=== PATIENT | male | born 1990 | race Caucasian/White ===

== ENCOUNTER → 2018-04-23 | Outpatient (CLI) | payer BC ==
--- NOTE | 2018-04-23 07:53 | US ---
EXAMINATION TYPE: US liver DATE OF EXAM: 04/23/2018 COMPARISON: NONE CLINICAL HISTORY: B18.2 Chronic viral Hep C. no symptoms, about to start treatment EXAM MEASUREMENTS: Liver Length: 17.8 cm Gallbladder Wall: 0.3 cm CBD: 0.6 cm Right Kidney: 11.9 x 5.2 x 5.9 cm overlying bowel gas limits exam Pancreas: limited views with no obvious abnormality Liver: wnl Gallbladder: wnl Evidence for sonographic Schulz's sign: no CBD: wnl Right Kidney: wnl IMPRESSION: No sonographic sequela of hepatocellular disease. Unremarkable hepatic ultrasound.
== END | disposition home or self-care (01) ==
LOC: RADUSWWP 07:00
DX: B18.2 Chronic viral hepatitis C (principal)
CPT/HCPCS: 76705

== ENCOUNTER → 2018-05-12 | Outpatient (CLI) | payer BC ==
[2018-05-12 18:04] LABS: Basophils % (A) 0 %; Eosinophils # (A) 0.1 k/uL (0-0.7); Eosinophils % (A) 2 %; HCT 48.8 % (39.0-53.0); HGB 15.6 gm/dL (13.0-17.5); Lymphocytes # (A) 2.2 k/uL (1.0-4.8); Lymphocytes % (A) 29 %; MCH 30.2 pg (25.0-35.0); MCHC 31.9 g/dL (31.0-37.0); MCV 94.5 fL (80.0-100.0); Mean Platelet Volume 7.1; Monocytes # (A) 0.5 k/uL (0-1.0); Monocytes % (A) 6 %; Neutrophils # (A) 4.6 k/uL (1.3-7.7); Neutrophils % (A) 61 %; Platelet Count 212 k/uL (150-450); RBC 5.17 m/uL (4.30-5.90); RDW 12.4 % (11.5-15.5); WBC 7.5 k/uL (3.8-10.6)
[2018-05-13 03:54] LABS: Albumin 4.6 g/dL (3.80-4.90); Bilirubin, Conjugated 0.2 mg/dL (0.20-0.40); Bilirubin,Unconjugated 0.4 mg/dL; Globulin 2.3 g/dL (2.1-3.7); Total Bilirubin 0.6 mg/dL (0.3-1.2); Total Protein 6.9 g/dL (6.2-8.2)
== END | disposition home or self-care (01) ==
LOC: LABWHC1 17:17
PROVIDERS: ATTEND Physician Assistant
DX: B18.2 Chronic viral hepatitis C (principal)
CPT/HCPCS: 36415; 80076; 85025; 87522